=== PATIENT | female | born 1945 | race Hispanic/Latino ===

== ENCOUNTER 2024-08-10 08:09 | Outpatient (CLI) | payer MEDICARE | END 2024-08-10 08:10 | disposition home or self-care (01) | LOC: CSHWCC 08:09 | PROVIDERS: ATTEND Nurse Practitioner Family | DX: I70.242 Atherosclerosis of native arteries of left leg with ulceration of calf (principal); I87.332 Chronic venous hypertension (idiopathic) with ulcer and inflammation of left lower extremity; L97.222 Non-pressure chronic ulcer of left calf with fat layer exposed; E64.8 Sequelae of other nutritional deficiencies; Z72.0 Tobacco use | CPT/HCPCS: 97597; 97598; G0463; 99213 ==

== ENCOUNTER 2024-08-17 09:42 | Outpatient (CLI) | payer MEDICARE | END 2024-08-17 09:43 | disposition home or self-care (01) | LOC: CSHWCC 09:42 | PROVIDERS: ATTEND Nurse Practitioner Family | DX: I87.332 Chronic venous hypertension (idiopathic) with ulcer and inflammation of left lower extremity (principal); L97.222 Non-pressure chronic ulcer of left calf with fat layer exposed; I70.242 Atherosclerosis of native arteries of left leg with ulceration of calf; E64.8 Sequelae of other nutritional deficiencies; Z72.0 Tobacco use | CPT/HCPCS: 97597 ==

== ENCOUNTER 2024-08-24 09:46 | Outpatient (CLI) | payer MEDICARE | END 2024-08-24 09:47 | disposition home or self-care (01) | LOC: CSHWCC 09:46 | PROVIDERS: ATTEND Nurse Practitioner Family | DX: I70.242 Atherosclerosis of native arteries of left leg with ulceration of calf (principal); I87.332 Chronic venous hypertension (idiopathic) with ulcer and inflammation of left lower extremity; L97.222 Non-pressure chronic ulcer of left calf with fat layer exposed; E64.8 Sequelae of other nutritional deficiencies; Z72.0 Tobacco use | CPT/HCPCS: 99213; G0463 ==

== ENCOUNTER 2024-08-31 12:44 | Outpatient (CLI) | payer MEDICARE | END 2024-08-31 12:45 | disposition home or self-care (01) | LOC: CSHWCC 12:44 | PROVIDERS: ATTEND Nurse Practitioner Family | DX: I70.242 Atherosclerosis of native arteries of left leg with ulceration of calf (principal); I87.332 Chronic venous hypertension (idiopathic) with ulcer and inflammation of left lower extremity; L97.222 Non-pressure chronic ulcer of left calf with fat layer exposed; E64.8 Sequelae of other nutritional deficiencies; Z72.0 Tobacco use | CPT/HCPCS: 99213; G0463 ==

== ENCOUNTER 2024-09-07 10:36 | Outpatient (CLI) | payer MEDICARE | END 2024-09-07 10:37 | disposition home or self-care (01) | LOC: CSHWCC 10:36 | PROVIDERS: ATTEND Family Medicine | DX: I87.332 Chronic venous hypertension (idiopathic) with ulcer and inflammation of left lower extremity (principal); L97.222 Non-pressure chronic ulcer of left calf with fat layer exposed; I70.242 Atherosclerosis of native arteries of left leg with ulceration of calf; E64.8 Sequelae of other nutritional deficiencies; Z72.0 Tobacco use | CPT/HCPCS: 99213; G0463 ==

== ENCOUNTER 2024-09-15 10:12 | Outpatient (CLI) | payer MEDICARE | END 2024-09-15 10:13 | disposition home or self-care (01) | LOC: CSHWCC 10:12 | PROVIDERS: ATTEND Nurse Practitioner Family | DX: I87.332 Chronic venous hypertension (idiopathic) with ulcer and inflammation of left lower extremity (principal); L97.222 Non-pressure chronic ulcer of left calf with fat layer exposed; I70.242 Atherosclerosis of native arteries of left leg with ulceration of calf; E64.8 Sequelae of other nutritional deficiencies; Z72.0 Tobacco use | CPT/HCPCS: 99212; G0463 ==